=== PATIENT | male | born 1950 | race Caucasian/White ===

== ENCOUNTER 2021-05-22 12:30 | Inpatient (IN) | payer MEDICARE, SELFPAY ==
[2021-05-22] VITALS (7 sets, daily range): BP systolic 156–200; BP diastolic 82–120; PULSE 103–130; RESP 20–36; TEMP 36.8–39.5; O2SAT 95–97; BMI 26.9
--- NOTE | ~2021-05-22 | XR_ITS ---
EXAMINATION: XR CHEST CLINICAL INFORMATION: Cough COMPARISON: Previous chest CT from yesterday TECHNIQUE: Frontal view of the chest was obtained. FINDINGS: The cardiac and mediastinal contours are stable.. There is subsegmental atelectasis at both lung bases. The lungs are otherwise clear. There is no pleural effusion or pneumothorax. There are degenerative changes of the spine. XR/XR chest 1V IMPRESSION: Subsegmental atelectasis at the lung bases. No evidence of pneumonia.
--- NOTE | ~2021-05-22 | CT_ITS ---
EXAMINATION: CT CHEST WITHOUT CONTRAST CLINICAL INFORMATION: Fever. Mental status change. COMPARISON: None TECHNIQUE: Multidetector volumetric CT imaging of the chest was done. Axial MIP volume rendering provided. Sagittal and coronal reformatted images were obtained. This CT examination was performed using dose optimization techniques as appropriate, variously including the following: *Automated exposure control *Adjustment of mA and/or kV according to patient size (this includes techniques or standardized protocols for targeted exams where dose is matched to indication/reason for exam; i.e. extremities or head) *Use of iterative reconstruction technique DLP: 412 mGy-cm FINDINGS: LUNGS: There is mild dependent atelectasis at the lung bases. The lungs are otherwise clear. No evidence of pneumonia is seen. MEDIASTINUM: Heart is slightly enlarged. There is coronary artery calcification. The thoracic aorta is upper normal in size and tortuous. There is no pericardial effusion. There are no enlarged hilar or mediastinal lymph nodes. PLEURA: There is no pleural effusion. No pleural mass or thickening. AXILLA: No lymphadenopathy. UPPER ABDOMEN: See abdominal and pelvic CT report OSSEOUS STRUCTURES: There are degenerative changes of the spine and right shoulder. CT/CT chest wo con IMPRESSION: Enlarged heart, coronary artery calcification and tortuous upper normal-size thoracic aorta. No evidence of pneumonia. Fleischner guidelines were followed.
--- NOTE | ~2021-05-22 | MR_ITS ---
MRI OF THE BRAIN WITHOUT IV CONTRAST INDICATION: CVA. COMPARISON: Head CT 05/22/2021. TECHNIQUE: Multiplanar multisequence MR imaging of the brain was obtained without IV contrast. FINDINGS: Artifact versus a punctate subacute lacunar infarct within the left basal ganglia on image 19 of series 4. No large acute territorial infarcts. There is global cerebral volume loss, there is advanced chronic microangiopathy, and there are chronic lacunar infarcts within the martini radiata and deep huang nuclei bilaterally. There are a few foci of chronic facilitated diffusion within the left splenium of the corpus callosum. There is no hydrocephalus, extra-axial surface collection, or herniation. The major flow voids at the skull base are preserved. There is no intracranial hemorrhage on the gradient recalled echo acquisition. The midline structures are normal. The cerebellar tonsils are normally positioned. The cerebellum and brainstem are normal. The craniocervical junction is normal. Osseous marrow signal intensity is homogenous. The visualized soft tissues are unremarkable. MR/MR head/brain wo con IMPRESSION: Artifact versus a punctate subacute lacunar infarct within the left basal ganglia on image 19 of series 4. No large acute territorial infarcts. There is global cerebral volume loss, there is advanced chronic microangiopathy, and there are chronic lacunar infarcts within the martini radiata and deep huang nuclei bilaterally.
--- NOTE | ~2021-05-22 | CT_ITS ---
EXAMINATION: CT ABDOMEN AND PELVIS WITHOUT CONTRAST CLINICAL INFORMATION: Fever. Mental status change. Vomiting. COMPARISON: None TECHNIQUE: Multidetector volumetric imaging was performed from the superior aspect of the liver through the pubic symphysis. Sagittal and coronal reformatted images were obtained on the technologist's workstation. This CT examination was performed using dose optimization techniques as appropriate, variously including the following: *Automated exposure control *Adjustment of mA and/or kV according to patient size (this includes techniques or standardized protocols for targeted exams where dose is matched to indication/reason for exam; i.e. extremities or head) *Use of iterative reconstruction technique DLP: 706 mGy-cm FINDINGS: LIVER, GALLBLADDER, AND BILIARY TREE: The liver is normal in size, shape, and attenuation. There is a 1 cm low-attenuation lesion in the lateral segment of the left lobe of the liver. This is low Hounsfield units without contrast measuring 11 and probably represents a cyst. No other focal liver lesion is seen. No biliary ductal dilatation is present. The gallbladder is unremarkable with no evidence of radiopaque gallstones, gallbladder wall thickening, or obvious pericholecystic inflammatory changes. PANCREAS: Unremarkable. SPLEEN: Unremarkable. ADRENAL GLANDS: Unremarkable. KIDNEYS AND URETERS: There are 2 stones in the lower pole of the right kidney. The largest stone measures 2 x 4 mm. There is question of right lower pole peripelvic cyst versus focal right lower pole calyceal dilatation. BLADDER: The prostate gland is enlarged and protrudes into the base of the bladder. The bladder is otherwise unremarkable. GASTROINTESTINAL TRACT: There is diverticulosis of the colon. The small and large bowel are otherwise unremarkable. The appendix is unremarkable. ABDOMINAL WALL: There is a small umbilical hernia containing fat. LYMPH NODES: Normal. VASCULAR: There is evidence of atherosclerotic disease. PELVIC VISCERA: Prostate gland is enlarged and protrudes into the base of the bladder. The prostate gland measures 4.6 x 5.6 cm in AP and transverse dimension. OSSEOUS STRUCTURES: There are degenerative changes of the spine. There is posterior subluxation of L5 with respect L5 for and S1 probably due to facet arthritis. CT/CT abdomen pelvis wo con IMPRESSION: Right lower pole renal stones. Question right lower pole peripelvic cyst versus focal calyceal dilatation. Enlarged prostate gland that protrudes into the base of the bladder. Diverticulosis. Fleischner guidelines were followed.
--- NOTE | ~2021-05-22 | CT_ITS ---
EXAMINATION: CT HEAD WITHOUT CONTRAST (STROKE PROTOCOL) CLINICAL INFORMATION: Stroke protocol. Slurred speech. Left-sided weakness. COMPARISON: None TECHNIQUE: Contiguous axial imaging was performed from the skull base to vertex without intravenous administration of contrast. This CT examination was performed using dose optimization techniques as appropriate, variously including the following: *Automated exposure control *Adjustment of mA and/or kV according to patient size (this includes techniques or standardized protocols for targeted exams where dose is matched to indication/reason for exam; i.e. extremities or head) *Use of iterative reconstruction technique DLP: 831 mGy-cm FINDINGS: There is no evidence of an extra-axial collection. There is no evidence of intra-axial or extra-axial hemorrhage. The ventricles and extra-axial CSF spaces are prominent suggestive of mild generalized atrophy. There is nonspecific periventricular white matter disease. There is low-attenuation seen in the right periventricular white matter and thalamus suggestive of a small lacunar infarcts. No old exams are available for comparison and these are of uncertain age. No mass or mass effect is seen. There is evidence of atherosclerotic disease. Review at bone windows is normal. No skull fracture is seen. Paranasal sinuses, mastoid air cells and middle ears are clear. CT/CT head for stroke IMPRESSION: Generalized atrophy and nonspecific periventricular white matter disease. 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 This could be better evaluated with MRI if clinically indicated. No hemorrhage or mass effect. This critical result was discussed with Janessa Talbot at 1251 hours on 05/22/2020. It was ascertained that the content and urgency of the report was understood at the time of direct communication.
--- NOTE | ~2021-05-22 | US_ITS ---
EXAMINATION: US EXTRACRANIAL CAROTID DUPLEX, BILATERAL CLINICAL INFORMATION: CVA COMPARISON: None TECHNIQUE: Real-time ultrasound and Doppler techniques (integrating B-mode 2-D vascular images, Doppler spectral analysis and color-flow Doppler imaging) were utilized to interrogate the extracranial carotid arteries, the vertebral arteries and proximal subclavian arteries bilaterally. The degree of stenosis is determined by criteria similar to NASCET. FINDINGS: Right Side: 1. There is mild atherosclerotic plaque seen in the bifurcation/proximal ICA region. 2. The common carotid artery PSV proximally is 135 cm/s and distally 114 cm/s. 3. The proximal internal carotid artery velocities are 105 cm/s systolic and 21 cm/s diastolic. 4. The proximal external carotid artery PSV is 190 cm/s. 5. The vertebral artery shows a grade flow. 6. The subclavian artery waveforms are normal. Left Side: 1. There is mild atherosclerotic plaque seen in the bifurcation/proximal ICA region. 2. The common carotid artery PSV proximally is 104 cm/s and distally 150 cm/s. 3. The proximal internal carotid artery velocities are 72 cm/s systolic and 21 cm/s diastolic. 4. The proximal external carotid artery PSV is 143 cm/s. 5. The vertebral artery shows antegrade flow. 6. The subclavian artery waveforms are normal. US/US carotid duplex BI IMPRESSION: 1. RIGHT: Mild atherosclerotic plaque. 0-49% mild nonhemodynamically significant right ICA stenosis. 2. LEFT: Mild atherosclerotic plaque. 0-49% mild nonhemodynamically significant left ICA stenosis. .
--- NOTE | 2021-05-22 12:35 | ECG_ITS ---
Test Reason : WEAKNESS Blood Pressure : / mmHG Vent. Rate : 119 BPM Atrial Rate : 119 BPM P-R Int : 182 ms QRS Dur : 100 ms QT Int : 310 ms P-R-T Axes : 022 -13 018 degrees QTc Int : 436 ms Sinus tachycardia Incomplete right bundle branch block Minimal voltage criteria for LVH, may be normal variant ( Scio product ) Borderline ECG When compared with ECG of 25-JUN-2001 15:34, Vent. rate has increased BY 53 BPM Referred By: Alyssa Talbot Electronically Signed By:RENÉ BRIDGES
--- NOTE | 2021-05-22 12:41 | ED_ITS ---
HPI - General Adult General Chief complaint: Stroke Stated complaint: STROKE ALERT,SLURRED SPEECH,L SIDE,LKWT DAYS Time Seen by Provider: 05/22/21 12:33 Source: patient and EMS Mode of arrival: EMS Limitations: no limitations History of Present Illness HPI narrative: 70 yo male with history of HTN here with reports of gen weakness. EMS called in stroke alert as they were concerned the patient had left sided weakness, slurred speech with last known well time unknown. They were called to do a well check on the patient. He was found in his bed. He tells me he has malaise. No other complaints. Yesterday morning felt okay, went to bed but I didnt want to get out of bed today. No other complaints. Related Data Home Medications Medication Instructions Recorded Confirmed aspirin 81 mg tablet,delayed 81 mg PO DAILY 03/04/20 release lisinopril 20 1 tab PO DAILY 05/22/21 mg-hydrochlorothiazide 25 mg tablet metoprolol succinate 100 mg 1 tab PO DAILY 05/22/21 tablet,extended release 24 hr Previous Rx's Medication Instructions Recorded amlodipine 5 mg tablet 5 mg PO DAILY 90 Days #90 tab 04/05/20 Allergies Allergy/AdvReac Type Severity Reaction Status Date / Time Unable to Assess Allergy Verified 05/22/21 12:52 Review of Systems Review of Systems: Yes all other systems are reviewed and are negative Constitutional: Constitutional: Reports no additional constitutional complaints, Denies body ache(s), Denies chills, Denies fever(s), Denies headache(s), Reports malaise and Denies weakness Eyes: Eyes: Reports no additional eye complaints and Denies change in vision ENT: Reports system reviewed and no additional complaints, except as documented, Denies dizziness, Denies headache(s), Denies nasal congestion, Denies nasal discharge and Denies neck pain Cardiovascular: Cardiovascular: Reports no additional cardiovascular complaints, Denies chest pain, Denies leg edema and Denies dyspnea Respiratory: Respiratory: Reports no additional respiratory complaints, Reports cough and Denies dyspnea Gastrointestinal: Gastrointestinal: Reports no additional gastrointestinal co mplaints, Denies abdominal pain, Denies diarrhea, Denies nausea and Denies vomiting Genitourinary: Genitourinary: Denies urinary incontinence Musculoskeletal: Musculoskeletal: Reports no additional musculoskeletal complaints, Denies back pain, Denies arthralgias, Denies joint swelling, Denies neck pain, Denies numbness and Denies tingling Integumentary/Breasts: Skin/Breast: Reports system reviewed and no additional complaints, except as docu and Denies rash Neurologic: Reports system reviewed and no additional complaints, except as documented, Denies Abnormal speech present, Denies dizziness, Denies h eadache(s), Denies numbness, Denies tingling and Denies weakness [facility] Past Medical History Attestation statement: The following information was validated with the patient. Source: old records reviewed and nursing notes reviewed Medical History Hypertension Pre-op examination Social History Social History Alcohol intake: current Alcohol intake frequency: holidays/special occasions only Alcohol type: wine Patient Tobacco Use Status: Never used Tobacco Use of substances other than those prescribed or required for medical reasons: No Advance Directives: No Advance Directives Information Provided: Yes Physical Exam ED Vital Signs: Vital Signs - 24 hr 05/22/21 12:52 05/22/21 13:02 05/22/21 14:24 Temperature 103.1 F H 103.1 F H 99.6 F Pulse Rate 119 H 115 H 115 H Respiratory Rate 36 H 26 H 24 H Blood Pressure 173/106 H 173/106 H 156/90 H Pulse Oximetry 95 95 96 BMI result Body Mass Index 26.9 Const General: alert Orientation/consciousness: oriented to person and oriented to place Limitations: no limitations HENMT Other: Tacky MM Head: Yes normal to inspection Ears: hearing grossly normal bilaterally and TM's normal bilaterally General nose exam: Normal external nose present Face and sinus: Yes normal facial exam Throat: Yes posterior oropharynx normal, Yes tonsils normal and Yes uvula midline Eyes General: appearance normal, both eyes and all related structures Pupils: Equal, round and reactive pupils present Neck Neck: Yes normal visual inspection, Yes full ROM, Yes no lymphadenopathy and Yes no meningeal signs Chest Chest palpation & inspection: normal inspection of the chest Resp Other: +dry cough mild tachypnea Auscultation: clear to auscultation bilaterally Cardio Rate: tachycardic Rhythm: regular rhythm Peripheral pulses: Peripheral pulses 2+ throughout GI Inspection: Yes normal to inspection Palpation (GI): Soft to palpation and nontender General: Yes no CVA tenderness Back/Spine/Pelvis Back: no CVA tenderness Thoracic/Lumbar Spine: thoracic and lumbar spine normal to inspection Skin Other: Warm to touch. flushed Neuro Other: UE 5/5 LE (RLE 5/5, LLE 4/5) Slow to respond General: oriented to person, oriented to place, moves all extremities, no meningeal signs and Unable to assess gait Cranial nerves: Yes CN's II-XII intact bilaterally, Yes Equal, round and reactive pupils present, Yes Bilaterally intact EOM present, Yes Nystagmus not present, Yes Normal facial strength present and Yes Midline tongue present Cognition (Neuro): normal cognition Speech: No Abnormal speech present Gait exam (Neuro): Unable to assess gait Sensory Exam: Normal double simultaneous stimulation for sensation Extrem General: Yes normal to inspection, Yes no pedal edema and Yes no calf tenderness NIH Stroke Scale Internal: Initial- Upon Arrival Level of Consciousness: Alert Level of Consciousness Questions: Answers both questions correctly Level of Consciousness Commands: Performs both tasks correctly Best Gaze: Normal Visual: No visual loss Facial Palsy: Normal Motor Arm (Right): No drift Motor Arm (Left): No drift Motor Leg (Right): No drift Motor Leg (Left): Drift Limb Ataxia: Absent Sensory: Normal Best Language: No aphasia Dysarthia: Normal Extinction and Inattention: No abnormality Score: 1 Course Course Course Narrative: Called in for stroke alert with EMS having concerns that patient has slurred speech, left sided weakness with unknown last known normal. On arrival I do not appreciated LUE weakness, or slurred speech. Patint warm to touch, feels febrile, tachycardic and flushed. Went direct to CT head as stroke alert. Will examine patient further post CT scan. 1250-call from dr Pickens w/ CT head results. IMPRESSION: Generalized atrophy and nonspecific periventricular white matter disease. 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 This could be better evaluated with MRI if clinically indicated. No hemorrhage or mass effect. -Not TPA candidate d/t unknown last known normal. 1300-Evaluated the patient post CT scan. Patient febrile 103, tachycardia and tachypnea likely secondary to fever, hypertensive (has not take his bp in several days). Fabiola MM. I do not appreciated any slurred speech or UE weakness. He does have some mild weakness of the LLE but unsure onset of this. Will need labs, EKG, UA, COVID/flu screening. At this time infection is awan spected. Antibiotics ordered. 1400-Per nursing patient failed swallow screen and was unable to tolerate oral APAP. Will give [place]. MG 1.4, will replace IV. CT chest/A/P all unremarkable. Patient is FLU A +. Meeting SIRS criteria. This is from viral infection. UA pending. He is alert, slow to respond and per cousin at bedside patient is not at his mental status baseline. Will admit to medicine for further w/u. 1500-D/w with Dr Lombardi who accepted admission. Medical Decision Making Medical Records Medical records reviewed: Yes I reviewed the patient's medical records. Lab Data Lab results reviewed: Yes I reviewed the patient's lab results. Result diagrams: 05/22/21 13:16 05/22/21 13:16 Labs: Lab Results 05/22/21 05/22/21 05/22/21 Range/Units 13:00 13:01 13:16 WBC 10.5 (4.8-10.8) X10*3/uL RBC 5.25 (4.60-5.80) X10*6/uL Hgb 14.7 (14.0-18.0) g/dl Hct 42.1 (42.0-52.0) % MCV 80.2 (80.0-98.0) fL MCH 28.0 (27.0-33.0) pg MCHC 34.9 (31.0-36.0) g/dl RDW 12.4 (11.0-16.0) % Plt Count 193 (160-400) X10*3/uL MPV 11.2 (9.4-12.4) fL Immature Gran % (Auto) 0.3 (0.0-0.4) % Neut % (Auto) 82.1 H (45-73) % Lymph % (Auto) 6.0 L (20-40) % Loup % (Auto) 11.3 H (2-11) % Eos % (Auto) 0.0 (0-4) % Baso % (Auto) 0.3 (0-2) % Lymph # (Auto) 0.6 L (1.2-4.9) X10*3/uL Loup # (Auto) 1.2 (0.1-1.2) X10*3/uL Eos # (Auto) 0.0 (0.0-0.4) X10*3/uL Baso # (Auto) 0.0 (0.0-0.2) X10*3/uL Abs Immat Gran (auto) 0.03 (0.00-0.03) X10*3/uL Absolute Neuts (auto) 8.7 H (2.0-8.3) x10*3/uL Absolute Nucleated RBC 0.000 (0.0-0.012) X10*3/uL Nucleated RBC % (auto) 0.0 (0.0-0.2) /100WBC PT (9.9-13.0) SEC Whole Blood PT 14.1 H (11.1-13.5) sec INR (0.9-1.1) Whole Blood INR 1.2 H (0.9-1.1) Sodium (135-145) mmol/L Potassium (3.3-5.1) mmol/L Chloride (96-108) mmol/L Carbon Dioxide (22-29) mmol/L Anion Gap (12-20) BUN (9-16) mg/dL Creatinine (0.5-1.4) mg/dL Estim Creat Clear Calc Estimated GFR POC Glucose 137 H (60-115) mg/dL Random Glucose (60-115) mg/dL Lactic Acid (0.5-2.0) mmol/L Calcium (8.4-10.2) mg/dL Magnesium (1.6-2.6) mg/dL Total Bilirubin (0.0-1.0) mg/dL Direct Bilirubin (0.0-0.5) mg/dL AST (5-37) U/L ALT (0-40) U/L Alkaline Phosphatase (39-117) U/L Total Creatine Kinase (38-174) U/L Troponin I High Sens (<3.5-35.0) ng/L Total Protein (6.5-8.0) g/dL Albumin (3.5-5.0) g/dL COVID-19 (CHUCK) (Negative) COVID-19 Clin Com Influenza Type A (MANUEL) (Negative) Influenza Type B (MANUEL) (Negative) Influenza A & B Note 05/22/21 05/22/21 05/22/21 Range/Units 13:16 13:16 13:16 WBC (4.8-10.8) X10*3/uL RBC (4.60-5.80) X10*6/uL Hgb (14.0-18.0) g/dl Hct (42.0-52.0) % MCV (80.0-98.0) fL MCH (27.0-33.0) pg MCHC (31.0-36.0) g/dl RDW (11.0-16.0) % Plt Count (160-400) X10*3/uL MPV (9.4-12.4) fL Immature Gran % (Auto) (0.0-0.4) % Neut % (Auto) (45-73) % Lymph % (Auto) (20-40) % Loup % (Auto) (2-11) % Eos % (Auto) (0-4) % Baso % (Auto) (0-2) % Lymph # (Auto) (1.2-4.9) X10*3/uL Loup # (Auto) (0.1-1.2) X10*3/uL Eos # (Auto) (0.0-0.4) X10*3/uL Baso # (Auto) (0.0-0.2) X10*3/uL Abs Immat Gran (auto) (0.00-0.03) X10*3/uL Absolute Neuts (auto) (2.0-8.3) x10*3/uL Absolute Nucleated RBC (0.0-0.012) X10*3/uL Nucleated RBC % (auto) (0.0-0.2) /100WBC PT 15.4 H (9.9-13.0) SEC Whole Blood PT (11.1-13.5) sec INR 1.3 H (0.9-1.1) Whole Blood INR (0.9-1.1) Sodium 140 (135-145) mmol/L Potassium 3.4 (3.3-5.1) mmol/L Chloride 104 (96-108) mmol/L Carbon Dioxide 21 L (22-29) mmol/L Anion Gap 18 (12-20) BUN 15 (9-16) mg/dL Creatinine 1.08 (0.5-1.4) mg/dL Estim Creat Clear Calc 71.8 Estimated GFR > 60 POC Glucose (60-115) mg/dL Random Glucose 139 H (60-115) mg/dL Lactic Acid 2.0 (0.5-2.0) mmol/L Calcium 9.4 (8.4-10.2) mg/dL Magnesium 1.5 L (1.6-2.6) mg/dL Total Bilirubin 0.7 (0.0-1.0) mg/dL Direct Bilirubin 0.2 (0.0-0.5) mg/dL AST 17 (5-37) U/L ALT 19 (0-40) U/L Alkaline Phosphatase 51 (39-117) U/L Total Creatine Kinase 373 H (38-174) U/L Troponin I High Sens (<3.5-35.0) ng/L Total Protein 7.5 (6.5-8.0) g/dL Albumin 4.4 (3.5-5.0) g/dL COVID-19 (CHUCK) (Negative) COVID-19 Clin Com Influenza Type A (MANUEL) (Negative) Influenza Type B (MANUEL) (Negative) Influenza A & B Note 05/22/21 05/22/21 05/22/21 Range/Units 13:16 13:16 13:16 WBC (4.8-10.8) X10*3/uL RBC (4.60-5.80) X10*6/uL Hgb (14.0-18.0) g/dl Hct (42.0-52.0) % MCV (80.0-98.0) fL MCH (27.0-33.0) pg MCHC (31.0-36.0) g/dl RDW (11.0-16.0) % Plt Count (160-400) X10*3/uL MPV (9.4-12.4) fL Immature Gran % (Auto) (0.0-0.4) % Neut % (Auto) (45-73) % Lymph % (Auto) (20-40) % Loup % (Auto) (2-11) % Eos % (Auto) (0-4) % Baso % (Auto) (0-2) % Lymph # (Auto) (1.2-4.9) X10*3/uL Loup # (Auto) (0.1-1.2) X10*3/uL Eos # (Auto) (0.0-0.4) X10*3/uL Baso # (Auto) (0.0-0.2) X10*3/uL Abs Immat Gran (auto) (0.00-0.03) X10*3/uL Absolute Neuts (auto) (2.0-8.3) x10*3/uL Absolute Nucleated RBC (0.0-0.012) X10*3/uL Nucleated RBC % (auto) (0.0-0.2) /100WBC PT (9.9-13.0) SEC Whole Blood PT (11.1-13.5) sec INR (0.9-1.1) Whole Blood INR (0.9-1.1) Sodium (135-145) mmol/L Potassium (3.3-5.1) mmol/L Chloride (96-108) mmol/L Carbon Dioxide (22-29) mmol/L Anion Gap (12-20) BUN (9-16) mg/dL Creatinine (0.5-1.4) mg/dL Estim Creat Clear Calc Estimated GFR POC Glucose (60-115) mg/dL Random Glucose (60-115) mg/dL Lactic Acid (0.5-2.0) mmol/L Calcium (8.4-10.2) mg/dL Magnesium (1.6-2.6) mg/dL Total Bilirubin (0.0-1.0) mg/dL Direct Bilirubin (0.0-0.5) mg/dL AST (5-37) U/L ALT (0-40) U/L Alkaline Phosphatase (39-117) U/L Total Creatine Kinase (38-174) U/L Troponin I High Sens 20.9 (<3.5-35.0) ng/L Total Protein (6.5-8.0) g/dL Albumin (3.5-5.0) g/dL COVID-19 (CHUCK) Negative (Negative) COVID-19 Clin Com See Note Influenza Type A (MANUEL) Positive A (Negative) Influenza Type B (MANUEL) Negative (Negative) Influenza A & B Note See Note Imaging Data CT scan - head: Attestation: I personally reviewed and interpreted this imaging study as follows: Radiologist's impression: FINDINGS: There is no evidence of an extra-axial collection. There is no evidence of intra-axial or extra-axial hemorrhage. The ventricles and extra-axial CSF spaces are prominent suggestive of mild generalized atrophy. There is nonspecific periventricular white matter disease. There is low-attenuation seen in the right periventricular white matter and thalamus suggestive of a small lacunar infarcts. No old exams are available for comparison and these are of uncertain age. No mass or mass effect is seen. There is evidence of atherosclerotic disease. Review at bone windows is normal. No skull fracture is seen. Paranasal sinuses, mastoid air cells and middle ears are clear. CT/CT head for stroke IMPRESSION: Generalized atrophy and nonspecific periventricular white matter disease. 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 This could be better evaluated with MRI if clinically indicated. No hemorrhage or mass effect. CT scan - chest: Attestation: I personally reviewed and interpreted this imaging study as follows: Radiologist's impression: [place] [id number] CT Scan Report Signed Patient: Jason Da Silva JR MR#: [id number] : 1950 Acct:[id number] Age/Sex: 70 / M ADM Date: 05/22/21 Loc: .ED Attending Dr: Ordering Physician: Alyssa Talbot NP Date of Service: 05/22/21 Procedure(s): CT chest wo [facility] Accession Number(s): [id number] cc: Alyssa Talbot NP~ EXAMINATION: CT CHEST WITHOUT CONTRAST CLINICAL INFORMATION: Fever. Mental status change.? COMPARISON: None? TECHNIQUE: Multidetector volumetric CT imaging of the chest was done. Axial MIP volume rendering provided. Sagittal and coronal reformatted images were obtained.? This CT examination was performed using dose optimization techniques as appropriate, variously including the following: *Automated exposure control *Adjustment of mA and/or kV according to patient size (this includes techniques or standardized protocols for targeted exams where dose is matched to indication/reason for exam; i.e. extremities or head) *Use of iterative reconstruction technique DLP: 412 mGy-cm FINDINGS: LUNGS: There is mild dependent atelectasis at the lung bases. The lungs are otherwise clear. No evidence of pneumonia is seen. MEDIASTINUM: Heart is slightly enlarged. There is coronary artery calcification. The thoracic aorta is upper normal in size and tortuous. There is no pericardial effusion. There are no enlarged hilar or mediastinal lymph nodes. PLEURA: There is no pleural effusion. No pleural mass or thickening.? AXILLA: No lymphadenopathy.? UPPER ABDOMEN: See abdominal and pelvic CT report OSSEOUS STRUCTURES: There are degenerative changes of the spine and right shoulder.? CT/CT chest wo con IMPRESSION: Enlarged heart, coronary artery calcification and tortuous upper normal-size thoracic aorta. No evidence of pneumonia. CT scan - abdomen: Attestation: I personally reviewed and interpreted this imaging study as follows: Radiologist's impression: FINDINGS: LIVER, GALLBLADDER, AND BILIARY TREE: The liver is normal in size, shape, and attenuation. There is a 1 cm low-attenuation lesion in the lateral segment of the left lobe of the liver. This is low Hounsfield units without contrast measuring 11 and probably represents a cyst. No other focal liver lesion is seen. No? biliary ductal dilatation is present. The gallbladder is unremarkable with no evidence of radiopaque gallstones, gallbladder wall thickening, or obvious pericholecystic inflammatory changes.? PANCREAS: Unremarkable.? SPLEEN: Unremarkable.? ADRENAL GLANDS: Unremarkable.? KIDNEYS AND URETERS: There are 2 stones in the lower pole of the right kidney. The largest stone measures 2 x 4 mm. There is question of right lower pole peripelvic cyst versus focal right lower pole calyceal dilatation.? BLADDER: The prostate gland is enlarged and protrudes into the base of the bladder. The bladder is otherwise unremarkable. GASTROINTESTINAL TRACT: There is diverticulosis of the colon. The small and large bowel are otherwise unremarkable. The appendix is unremarkable.? ABDOMINAL WALL: There is a small umbilical hernia containing fat. LYMPH NODES: Normal. VASCULAR: There is evidence of atherosclerotic disease. PELVIC VISCERA: Prostate gland is enlarged and protrudes into the base of the bladder. The prostate gland measures 4.6 x 5.6 cm in AP and transverse dimension. OSSEOUS STRUCTURES: There are degenerative changes of the spine. There is posterior subluxation of L5 with respect L5 for and S1 probably due to facet arthritis.? CT/CT abdomen pelvis wo con IMPRESSION: Right lower pole renal stones. Question right lower pole peripelvic cyst versus focal calyceal dilatation. Enlarged prostate gland that protrudes into the base of the bladder. Diverticulosis. ? Fleischner guidelines were followed. Discharge Plan Discharge Clinical Impression: Influenza, Encephalopathy, Abnormal CT scan of head Patient Disposition: Admitted As Inpatient
[2021-05-22 13:05] LABS: Prothrombin Time Whole Bld POC 14.1 sec (11.1-13.5); ~PT, ~INR - Anti Coag Clinic 1.2 (0.9-1.1)
[2021-05-22 13:07] LABS: Glucose, Whole Blood 137 mg/dL (60-115)
[2021-05-22] MEDS: 0.9 % Sodium Chloride 1,000 ML 999 ML IV (13:22)
[2021-05-22 13:23] LABS: MANUAL DIFF FLAG NO
[2021-05-22 13:26] LABS: Basophils Percent Auto 0.3 % (0-2); Hematocrit 42.1 % (42.0-52.0); Hemoglobin 14.7 g/dl (14.0-18.0); Imm Gran Abs Auto 0.03 X10*3/uL (0.00-0.03); Imm Gran Pct Auto 0.3 % (0.0-0.4); Lymphocytes Absolute Auto 0.6 X10*3/uL (1.2-4.9); Mean Corpuscular HGB Conc 34.9 g/dl (31.0-36.0); Mean Corpuscular Volume 80.2 fL (80.0-98.0); Mean Platelet Volume 11.2 fL (9.4-12.4); Monocytes Absolute Auto 1.2 X10*3/uL (0.1-1.2); Monocytes Percent Auto 11.3 % (2-11); Neutrophils Absolute Auto 8.7 x10*3/uL (2.0-8.3); Neutrophils Percent Auto 82.1 % (45-73); Platelet Count 193 X10*3/uL (160-400); Red Blood Count 5.25 X10*6/uL (4.60-5.80); Red Cell Distribution Width 12.4 % (11.0-16.0); White Blood Count 10.5 X10*3/uL (4.8-10.8)
[2021-05-22] MEDS: cefTRIAXone sodium 1 GM in 0.9 % Sodium Chloride 50 ML IV (13:28)
[2021-05-22 13:32] LABS: INTERNATIONAL NORM RATIO 1.3 (0.9-1.1); Prothrombin Time 15.4 SEC (9.9-13.0)
[2021-05-22] MEDS: Acetaminophen Supp 650 MG SUPP.RECT PR (13:36)
--- NOTE | 2021-05-22 13:38 | PC.NURSE ---
pt a&ox3, hypertensive, increased RR (25-35) - pt reports that his breathing is normal for him, sinus tach on monitor. pt unsure as to what happened prior to pt being found by EMS, pt straight to CT. cock ring premoved by provider. ekg obtained, labs drawn, 20G IV started R AC, 18G IV started by EMS L AC and L forearm. flds started. failed swallow screen. unable to obtain urine sample at this time, family at bedside.
[2021-05-22 13:40] LABS: COVID-19 Test Negative (Negative); IDNOW Serial# 16C4AD1C
--- NOTE | 2021-05-22 13:40 | PC.NURSE ---
medicated per provider order - Tylenol changed to suppository due to failed swallow eval.
[2021-05-22 13:43] LABS: Alanine Aminotransferase 19 U/L (0-40); Albumin Level 4.4 g/dL (3.5-5.0); Alkaline Phosphatase 51 U/L (39-117); Anion Gap 18 (12-20); Aspartate Amino Transferase 17 U/L (5-37); Bilirubin Direct 0.2 mg/dL (0.0-0.5); Bilirubin Total 0.7 mg/dL (0.0-1.0); Blood Urea Nitrogen 15 mg/dL (9-16); Calcium 9.4 mg/dL (8.4-10.2); Carbon Dioxide 21 mmol/L (22-29); Chloride 104 mmol/L (96-108); Creatinine Clr Calc Pharmacy 71.8; Estimated Glomerular Filt Rate > 60; Glucose Random 139 mg/dL (60-115); Magnesium 1.5 mg/dL (1.6-2.6); Potassium 3.4 mmol/L (3.3-5.1); Sodium 140 mmol/L (135-145); Total Protein 7.5 g/dL (6.5-8.0)
[2021-05-22 13:47] LABS: Troponin-I High Sensitivity 20.9 ng/L (<3.5-35.0)
[2021-05-22 13:51] LABS: Influenza A Positive (Negative); Influenza B2 Negative (Negative)
[2021-05-22] MEDS: Magnesium Sulfate/H2O 2 GM/50 ML PIGGYBACK IV (14:19)
--- NOTE | 2021-05-22 14:26 | PC.NURSE ---
pt a&ox3, denies pain at this time, breathing appears less laboured, RR 25. medicated per provider order. no new orders at this time.
--- NOTE | 2021-05-22 15:07 | PHA.MEDREC ---
Pharmacy Consult ? Medication Reconciliation Pharmacy has completed the medication reconciliation.
--- NOTE | 2021-05-22 15:39 | P.HPHOSP_ITS ---
History of Present Illness Date of Service: 05/22/21 Attending physician on admission: Micheal Lombardi Chief Complaint: sirs , flu , cva 70-year-old male with past medical history uncontrolled hypertension- for today ED because of question of left-sided arm weakness and slurred speech. 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 As per the patient patient has left shoulder pain which is chronic and getting treatment in [facility] off with pain management? Is also not clear if he had slurred speech, currently speaking normally. Denies any new complaint of chest pain or shortness of breath or abdominal pain or fever or chills or nausea or vomiting Denies any weakness or numbness. ED workup: WBC 10.5 Hemoglobin is 14.7, hematocrit: 42.1 Platelets 193 bmp: Sodium 140, potassium 3.4, bicarb 21, BUN 15, creatinine 1.08. Fingersticks running 130s LFTs normal. CPK 373 CT/CT abdomen pelvis wo con IMPRESSION: Right lower pole renal stones. Question right lower pole peripelvic cyst versus focal calyceal dilatation. Enlarged prostate gland that protrudes into the base of the bladder. Diverticulosis. ? Fleischner guidelines were followed. ?CT/CT chest wo con IMPRESSION: Enlarged heart, coronary artery calcification and tortuous upper normal-size thoracic aorta. No evidence of pneumonia. ? Fleischner guidelines were followed. CT/CT head for stroke IMPRESSION: Generalized atrophy and nonspecific periventricular white matter disease. 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 This could be better evaluated with MRI if clinically indicated. No hemorrhage or mass effect. Review of Systems Review of Systems: As above. Yes all other systems are reviewed and are negative [facility] Medical History Hypertension Pre-op examination Pertinent family history: Mother had history of CVA, denies anybody sick at home. Social History Alcohol intake: current Alcohol intake frequency: holidays/special occasions only Alcohol type: wine Patient Tobacco Use Status: Never used Tobacco Use of substances other than those prescribed or required for medical reasons: No Advance Directives: No Advance Directives Information Provided: Yes Meds Allergies Allergy/AdvReac Type Severity Reaction Status Date / Time Unable to Assess Allergy Verified 05/22/21 12:52 Active Medications: Current Medications Aspirin (Aspirin Enteric Coated 81 Mg Tablet.Dr) 81 mg PO DAILY AMIRA Lisinopril 20 mg/ (Hydrochlorothiazide 25 mg) 0 mg PO DAILY AMIRA Magnesium Sulfate (Magnesium Sulfate/H2o) 2 gm in 50 mls @ 25 mls/hr IV ONCE ONE Stop: 05/22/21 15:53 Last Admin: 05/22/21 14:19 Dose: 25 mls/hr Documented by: Metoprolol Succinate (Metoprolol Succinate Er 100 Mg Tab.Er.24h) 100 mg PO DAILY AMIRA; Protocol Pharmacy Consult (Consult Rx Perform Med Rec) 1 each MISCELLANE ONCE PRN PRN Reason: Consult order Home Medications Medication Instructions Recorded Confirmed Last Taken Type aspirin 81 mg tablet,delayed 81 mg PO DAILY 03/04/20 05/22/21 05/21/21 History release lisinopril 20 1 tab PO DAILY 05/22/21 05/22/21 05/21/21 History mg-hydrochlorothiazide 25 mg tablet metoprolol succinate 100 mg 1 tab PO DAILY 05/22/21 05/22/21 05/21/21 History tablet,extended release 24 hr Physical Exam Vital Signs and Narrative: Vital Signs: Last Vital Signs Temp 99.6 F 05/22/21 14:24 Pulse 115 H 05/22/21 14:24 Resp 24 H 05/22/21 14:24 BP 156/90 H 05/22/21 14:24 Pulse Ox 96 05/22/21 14:24 BMI result Body Mass Index 26.9 Appearance: Alert.? Oriented X3.? not in distress.? Eyes: Pupils equal, round and reactive to light.? Sclera nonicteric.? ENT: Pharynx normal.? Moist mucous membranes. cvs: rrr, [id number] , no murmur res: clear to auscultation ,no rhonchii or wheezing abd: no rebound or guarding ,nt, bs present. ext pulses present , no cyanosis . neuro: axo3, moves all extermities ,left arm and shoulder area rom limited -has pain feels weak generally ,could stand up not walking feels generally weak. Results Labs CBC and Chem 7: 05/22/21 13:16 05/22/21 13:16 Labs: Laboratory Results - last 24 hr 05/22/21 05/22/21 05/22/21 13:00 13:01 13:16 MCV 80.2 MCH 28.0 MCHC 34.9 RDW 12.4 Plt Count 193 MPV 11.2 Immature Gran % (Auto) 0.3 Neut % (Auto) 82.1 H Lymph % (Auto) 6.0 L [place] % (Auto) 11.3 H Eos % (Auto) 0.0 Baso % (Auto) 0.3 Lymph # (Auto) 0.6 L [place] # (Auto) 1.2 Eos # (Auto) 0.0 Baso # (Auto) 0.0 Abs Immat Gran (auto) 0.03 Absolute Neuts (auto) 8.7 H Absolute Nucleated RBC 0.000 Nucleated RBC % (auto) 0.0 PT Whole Blood PT 14.1 H INR Whole Blood INR 1.2 H Anion Gap Estim Creat Clear Calc Estimated GFR POC Glucose 137 H Random Glucose Lactic Acid Calcium Magnesium Total Bilirubin Direct Bilirubin AST ALT Alkaline Phosphatase Total Creatine Kinase Total Protein Albumin COVID-19 (CHUCK) COVID-19 Clin Com Influenza Type A (MANUEL) Influenza Type B (MANUEL) Influenza A & B Note 05/22/21 05/22/21 05/22/21 13:16 13:16 13:16 MCV MCH MCHC RDW Plt Count MPV Immature Gran % (Auto) Neut % (Auto) Lymph % (Auto) [place] % (Auto) Eos % (Auto) Baso % (Auto) Lymph # (Auto) [place] # (Auto) Eos # (Auto) Baso # (Auto) Abs Immat Gran (auto) Absolute Neuts (auto) Absolute Nucleated RBC Nucleated RBC % (auto) PT 15.4 H Whole Blood PT INR 1.3 H Whole Blood INR Anion Gap 18 Estim Creat Clear Calc 71.8 Estimated GFR > 60 POC Glucose Random Glucose 139 H Lactic Acid 2.0 Calcium 9.4 Magnesium 1.5 L Total Bilirubin 0.7 Direct Bilirubin 0.2 AST 17 ALT 19 Alkaline Phosphatase 51 Total Creatine Kinase 373 H Total Protein 7.5 Albumin 4.4 COVID-19 (CHUCK) COVID-19 Clin Com Influenza Type A (MANUEL) Influenza Type B (MANUEL) Influenza A & B Note 05/22/21 05/22/21 13:16 13:16 MCV MCH MCHC RDW Plt Count MPV Immature Gran % (Auto) Neut % (Auto) Lymph % (Auto) [place] % (Auto) Eos % (Auto) Baso % (Auto) Lymph # (Auto) [place] # (Auto) Eos # (Auto) Baso # (Auto) Abs Immat Gran (auto) Absolute Neuts (auto) Absolute Nucleated RBC Nucleated RBC % (auto) PT Whole Blood PT INR Whole Blood INR Anion Gap Estim Creat Clear Calc Estimated GFR POC Glucose Random Glucose Lactic Acid Calcium Magnesium Total Bilirubin Direct Bilirubin AST ALT Alkaline Phosphatase Total Creatine Kinase Total Protein Albumin COVID-19 (CHUCK) Negative COVID-19 Clin Com See Note Influenza Type A (MANUEL) Positive A Influenza Type B (MANUEL) Negative Influenza A & B Note See Note ECG Attestation: I personally reviewed and interpreted this ECG as follows: (sinus tachycardia) Imaging Radiologist's Impressions: Impressions Head CT 05/22/21 12:42 IMPRESSION: Generalized atrophy and nonspecific periventricular white matter disease. 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 This could be better evaluated with MRI if clinically indicated. No hemorrhage or mass effect. This critical result was discussed with Janessa Talbot at 1251 hours on 05/22/2020. It was ascertained that the content and urgency of the report was understood at the time of direct communication. Abdomen/Pelvis CT 05/22/21 13:04 IMPRESSION: Right lower pole renal stones. Question right lower pole peripelvic cyst versus focal calyceal dilatation. Enlarged prostate gland that protrudes into the base of the bladder. Diverticulosis. Fleischner guidelines were followed. Chest CT 05/22/21 13:04 IMPRESSION: Enlarged heart, coronary artery calcification and tortuous upper normal-size thoracic aorta. No evidence of pneumonia. Fleischner guidelines were followed. Assessment and Plan (1) Influenza: Status: Acute (2) Abnormal CT scan of head: Status: Acute (3) Hypertension: Status: Acute Plan 1. Possible cva? ct findings seems undetemined age continue asa , lipid panel cva workup , neurology eval 2.htn uncontrolled : cotninue home meds 3. Viral sepsis due to influenza A: Continue Tamiflu Ua and drug sceern also added . Blood culture pending 4. Hypomagnesemia: Repleted, monitor electrolytes. 5. Pre renal azotemia: Continue gentle hydration. 6. Mild hyperglycemia: Added hemoglobin A1c. 7. Prostate enlargement: added flomax. DVT prophylaxis: Subcu heparin. Above management discussed the patient detail length they understand agreement with the above plan, time spent 70 minute, patient is DNR DNI as per patient wishes. Considering having possible CVA need workup, uncontrolled hypertension and viral sepsis-patient may benefit from to midnight hospital stay. Quality Stroke Does the patient have a stroke diagnosis?: No VTE Prior VTE?: No VTE Risk Level:: Medical - moderate - high VTE Device Contraindication: N/A - Device Ordered VTE Drug Contraindication: N/A - Med Ordered
--- NOTE | 2021-05-22 16:01 | PC.NURSE ---
u/s in room, urine sample obtained and sent to lab
[2021-05-22 16:06] LABS: Appearance Urine CLEAR; Color Urine YELLOW; Glucose Urine UA NEG (NEG); Leukocyte Esterase Urine NEG (NEG); Nitrite Urine NEG (NEG); PH 5.5 (5.0-8.0); Specific Gravity - Urine >= 1.030 (1.005-1.025); UACC Culture Trigger NO; Urine Blood 2+ (NEG); Urine Ketones 15 MG/DL (NEG); Urine Protein 2+ MG/DL (NEG-TRACE)
[2021-05-22 16:17] LABS: RBC Urine 0-2 /HPF (0); WBC Urine 0 /HPF (0-4)
[2021-05-22 16:18] LABS: Amphetamine Screen Urine Not Detected (Not Detect); Barbiturates, Urine Not Detected (Not Detect); Benzodiazepines Screen Urine Not Detected (Not Detect); Cannabinoid Screen Urine Not Detected (Not Detect); Cocaine Screen Urine Not Detected (Not Detect); Fentanyl, urine Not Detected (Not Detect); Mucus Urine TRACE /LPF; Opiate Screen Urine Not Detected (Not Detect); Phencyclidine Screen Urine Not Detected (Not Detect); Squamous Epithelial Cell Urine TRACE /LPF
[2021-05-22 16:21] LABS: Glucose, Whole Blood 150 mg/dL (60-115)
[2021-05-22] MEDS: Lactated Ringers 1,000 ML 80 ML IVCONT (16:24)
[2021-05-22] MEDS: Heparin Sodium,Porcine 5,000 UNIT/ML VIAL 5000 UNIT SUBCUT (16:24)
--- NOTE | 2021-05-22 17:03 | PC.NURSE ---
pt a&ox3, vss - pt remains hypertensive/sinus tach, LR running at 80mL/hr, pt has equal strength bilateral upper and lower extremities. pt had slight difficulty holding left leg up, but managed to keep it at the same height. swallow eval repeated - pt passed, provider notified, will put in diet for pt. no new orders at this time.
--- NOTE | 2021-05-22 17:30 | PC.NURSE ---
pt requesting throat lozenge for sore throat (pt coughing), provider notified.
[2021-05-22] MEDS: Throat Lozenge, Medicated LOZENGE 1 LOZENGE MUCOUS MEM ×2 (18:40→21:01)
--- NOTE | 2021-05-22 18:56 | PC.NURSE ---
pt a&ox3, vss - hypertensive,
--- NOTE | 2021-05-22 19:00 | PC.NURSE ---
pt a&ox3, vss - pt remains hypertensive with HR in the high 90s to low 100s, RR 18-25. pt has equal strength bilateral upper and lower extremities. pt had slight difficulty holding left leg up, but managed to keep it at the same height. pt c/o of sore throat, prn throat lozenge ordered by provider, medicated per order. LR @ 80mL/hr.
[2021-05-22 19:37] LABS: Strep A Nucleic Acid Negative (Negative)
[2021-05-22] MEDS: Oseltamivir Phosphate 75 MG CAPSULE PO (20:05)
[2021-05-22] MEDS: Tamsulosin HCL 0.4 MG CAPSULE PO (20:05)
--- NOTE | 2021-05-22 20:06 | PC.NURSE ---
patient medicated per order
--- NOTE | 2021-05-22 20:15 | PC.NURSE ---
report called to overflow
[2021-05-22] MEDS: 0.9 % Sodium Chloride Flush 3 ML SYRINGE IVFLUSH (21:00)
[2021-05-23] VITALS (10 sets, daily range): BP systolic 127–166; BP diastolic 76–93; PULSE 83–117; RESP 14–33; TEMP 36.9–37.4; O2SAT 93–98
[2021-05-23] MEDS: Heparin Sodium,Porcine 5,000 UNIT/ML VIAL 5000 UNIT SUBCUT ×3 (02:25→18:40)
[2021-05-23 03:22] LABS: Estimated Average Glucose 123 mg/dL; Hemoglobin A1C 152.1669 umol/L; Hemoglobin A1c % 5.9 %
[2021-05-23] MEDS: Lactated Ringers 1,000 ML 80 ML IVCONT ×2 (06:10→22:32)
[2021-05-23 07:20] LABS: MANUAL DIFF FLAG NO
[2021-05-23 07:28] LABS: Basophils Percent Auto 0.1 % (0-2); Hematocrit 41.9 % (42.0-52.0); Hemoglobin 14.3 g/dl (14.0-18.0); Imm Gran Abs Auto 0.06 X10*3/uL (0.00-0.03); Imm Gran Pct Auto 0.4 % (0.0-0.4); Lymphocytes Absolute Auto 1.3 X10*3/uL (1.2-4.9); Lymphocytes Percent Auto 9.6 % (20-40); Mean Corpuscular HGB Conc 34.1 g/dl (31.0-36.0); Mean Corpuscular Volume 82.2 fL (80.0-98.0); Mean Platelet Volume 11.2 fL (9.4-12.4); Monocytes Absolute Auto 1.4 X10*3/uL (0.1-1.2); Monocytes Percent Auto 10.3 % (2-11); Neutrophils Percent Auto 79.6 % (45-73); Platelet Count 180 X10*3/uL (160-400); Red Cell Distribution Width 12.5 % (11.0-16.0); White Blood Count 13.9 X10*3/uL (4.8-10.8)
[2021-05-23 07:49] LABS: Anion Gap 17 (12-20); Blood Urea Nitrogen 16 mg/dL (9-16); Calcium 8.9 mg/dL (8.4-10.2); Carbon Dioxide 21 mmol/L (22-29); Chloride 104 mmol/L (96-108); Cholesterol 182 mg/dL; Estimated Glomerular Filt Rate > 60; Glucose Random 139 mg/dL (60-115); HDL Cholesterol 34 mg/dL; LDL Cholesterol Calculated 129 mg/dl; Potassium 3.5 mmol/L (3.3-5.1); Sodium 138 mmol/L (135-145); Triglycerides 98 mg/dL
[2021-05-23 08:45] LABS: Magnesium 1.9 mg/dL (1.6-2.6)
[2021-05-23] MEDS: Magnesium Oxide 400 MG TABLET PO ×2 (09:14→18:39)
[2021-05-23] MEDS: 0.9 % Sodium Chloride Flush 3 ML SYRINGE IVFLUSH ×2 (09:15→18:39)
[2021-05-23] MEDS: lisinopriL 20 MG, hydroCHLOROthiazide 25 MG PO (09:15)
[2021-05-23] MEDS: Oseltamivir Phosphate 75 MG CAPSULE PO ×2 (09:16→22:33)
[2021-05-23] MEDS: amLODIPine Besylate 5 MG TABLET PO (09:16)
[2021-05-23] MEDS: Aspirin Enteric Coated 81 MG TABLET.DR PO (09:16)
[2021-05-23] MEDS: Metoprolol Succinate ER 100 MG TAB.ER.24H PO (09:16)
--- NOTE | 2021-05-23 09:21 | PC.NURSE ---
pt is a/o x 3 no sob/holli noted skin pink warm dry speaks in full sentences.lungs - crackles noted all lobes and pt is very congested.
--- NOTE | 2021-05-23 13:38 | HO.PM.IMPN ---
Subjective Subjective Date of Service: 05/23/21 Interval History: sirs ,flu A, cva Review of Systems Patient still tachycardia and tachypneic, generalized weak Has cough and sore throat,cough with Physical Exam Vital Signs: Vital Signs: Last Vital Signs Temp 98.5 F 05/23/21 13:03 Pulse 100 05/23/21 13:03 Resp 14 05/23/21 13:03 BP 127/87 05/23/21 13:03 Pulse Ox 95 05/23/21 13:03 BMI result Body Mass Index 26.9 Appearance: Alert.? Oriented X3.? not in distress.feels weak generally Eyes: Pupils equal, round and reactive to light.? Sclera nonicteric.? ENT: Pharynx normal.? Moist mucous membranes. cvs: rrr, [id number] i res: air entry fair , slightly diminshed at bases, abd: no rebound or guarding ,nt, bs present. ext pulses present , no cyanosis . neuro: axo3, moves all extermities ,left arm and shoulder area rom limited -has pain Objective Data Active Medications Amlodipine Besylate (Amlodipine Besylate 5 Mg Tablet) 5 mg PO DAILY [facility]; Protocol Last Admin: 05/23/21 09:16 Dose: 5 mg Documented by: EL Aspirin (Aspirin Enteric Coated 81 Mg Tablet.) 81 mg PO DAILY [facility] Last Admin: 05/23/21 09:16 Dose: 81 mg Documented by: EL Benzocaine (Throat Lozenge, Medicated Lozenge) 1 lozenge MUCOUS MEM Q2H PRN PRN Reason: Sore Throat Last Admin: 05/22/21 21:01 Dose: 1 lozenge Documented by: MENDEZ Lisinopril 20 mg/ (Hydrochlorothiazide 25 mg) 0 mg PO DAILY [facility] Last Admin: 05/23/21 09:15 Dose: 1 tablet Documented by: EL Heparin Sodium (Porcine) (Heparin Sodium,Porcine 5,000 Unit/Ml Vial) 5,000 unit SUBCUT Q8H [facility] Last Admin: 05/23/21 09:14 Dose: 5,000 unit Documented by: PARTHAOC Lactated Ringer's (Lr) 1,000 mls @ 80 mls/hr IVCONT .[id number] [facility] Last Admin: 05/23/21 06:10 Dose: 80 mls/hr Documented by: MCTA Magnesium Oxide (Magnesium Oxide 400 Mg Tablet) 400 mg PO BIDPC [facility] Last Admin: 05/23/21 09:14 Dose: 400 mg Documented by: EL Metoprolol Succinate (Metoprolol Succinate Er 100 Mg Tab.Er.24h) 100 mg PO DAILY [facility]; Protocol Last Admin: 05/23/21 09:16 Dose: 100 mg Documented by: EL Oseltamivir Phosphate (Oseltamivir Phosphate 75 Mg Capsule) 75 mg PO BID [facility] Last Admin: 05/23/21 09:16 Dose: 75 mg Documented by: EL Pharmacy Consult (Consult Rx Perform Med Rec) 1 each MISCELLANE ONCE PRN PRN Reason: Consult order Sodium Chloride (0.9 % Sodium Chloride Flush 3 Ml Syringe) 3 ml IVFLUSH QSHIFT [facility] Last Admin: 05/23/21 09:15 Dose: 3 ml Documented by: EL Tamsulosin HCl (Tamsulosin Hcl 0.4 Mg Capsule) 0.4 mg PO BEDTIME [facility] Last Admin: 05/22/21 20:05 Dose: 0.4 mg Documented by: KATHERINE Labs CBC & Chem 7: 05/23/21 07:03 05/23/21 07:03 Labs: Laboratory Results - last 24 hr 05/22/21 05/22/21 05/22/21 13:16 13:16 13:16 MCV MCH MCHC RDW Plt Count MPV Immature Gran % (Auto) Neut % (Auto) Lymph % (Auto) [place] % (Auto) Eos % (Auto) Baso % (Auto) Lymph # (Auto) [place] # (Auto) Eos # (Auto) Baso # (Auto) Abs Immat Gran (auto) Absolute Neuts (auto) Absolute Nucleated RBC Nucleated RBC % (auto) Anion Gap 18 Estim Creat Clear Calc 71.8 Estimated GFR > 60 POC Glucose Random Glucose 139 H Estimat Average Glucose Hemoglobin A1c % Calcium 9.4 Magnesium 1.5 L Total Bilirubin 0.7 Direct Bilirubin 0.2 AST 17 ALT 19 Alkaline Phosphatase 51 Total Creatine Kinase 373 H Total Protein 7.5 Albumin 4.4 Triglycerides Cholesterol LDL Cholesterol, Calc HDL Cholesterol Urine Color Urine Appearance Urine pH Ur Specific Silt Urine Protein Urine Glucose (UA) Urine Ketones Urine Blood Urine Nitrite Ur Leukocyte Esterase Urine RBC Urine WBC Ur Squamous Epith Cells Urine Bacteria Urine Mucus Urine Opiates Screen Urine Fentanyl Screen Ur Barbiturates Screen Ur Phencyclidine Scrn Ur Amphetamines Screen U Benzodiazepines Scrn Urine Cocaine Screen U Marijuana (THC) Screen COVID-19 (CHUCK) Negative COVID-19 Clin Com See Note Influenza Type A (MANUEL) Positive A Influenza Type B (MANUEL) Negative Influenza A & B Note See Note S. pyogenes GrpA MANUEL 05/22/21 05/22/21 05/22/21 13:16 15:57 15:57 MCV MCH MCHC RDW Plt Count MPV Immature Gran % (Auto) Neut % (Auto) Lymph % (Auto) [place] % (Auto) Eos % (Auto) Baso % (Auto) Lymph # (Auto) [place] # (Auto) Eos # (Auto) Baso # (Auto) Abs Immat Gran (auto) Absolute Neuts (auto) Absolute Nucleated RBC Nucleated RBC % (auto) Anion Gap Estim Creat Clear Calc Estimated GFR POC Glucose Random Glucose Estimat Average Glucose 123 Hemoglobin A1c % 5.9 Calcium Magnesium Total Bilirubin Direct Bilirubin AST ALT Alkaline Phosphatase Total Creatine Kinase Total Protein Albumin Triglycerides Cholesterol LDL Cholesterol, Calc HDL Cholesterol Urine Color YELLOW Urine Appearance CLEAR Urine pH 5.5 Ur Specific Silt >= 1.030 H Urine Protein 2+ H Urine Glucose (UA) NEG Urine Ketones 15 Urine Blood 2+ H Urine Nitrite NEG Ur Leukocyte Esterase NEG Urine RBC 0-2 Urine WBC 0 Ur Squamous Epith Cells TRACE Urine Bacteria NONE Urine Mucus TRACE Urine Opiates Screen Not Detected Urine Fentanyl Screen Not Detected Ur Barbiturates Screen Not Detected Ur Phencyclidine Scrn Not Detected Ur Amphetamines Screen Not Detected U Benzodiazepines Scrn Not Detected Urine Cocaine Screen Not Detected U Marijuana (THC) Screen Not Detected COVID-19 (CHUCK) COVID-19 Clin Com Influenza Type A (MANUEL) Influenza Type B (MANUEL) Influenza A & B Note S. pyogenes GrpA MANUEL 05/22/21 05/22/21 05/23/21 16:18 19:18 07:03 MCV 82.2 MCH 28.0 MCHC 34.1 RDW 12.5 Plt Count 180 MPV 11.2 Immature Gran % (Auto) 0.4 Neut % (Auto) 79.6 H Lymph % (Auto) 9.6 L [place] % (Auto) 10.3 Eos % (Auto) 0.0 Baso % (Auto) 0.1 Lymph # (Auto) 1.3 [place] # (Auto) 1.4 H Eos # (Auto) 0.0 Baso # (Auto) 0.0 Abs Immat Gran (auto) 0.06 H Absolute Neuts (auto) 11.0 H Absolute Nucleated RBC 0.000 Nucleated RBC % (auto) 0.0 Anion Gap Estim Creat Clear Calc Estimated GFR POC Glucose 150 H Random Glucose Estimat Average Glucose Hemoglobin A1c % Calcium Magnesium Total Bilirubin Direct Bilirubin AST ALT Alkaline Phosphatase Total Creatine Kinase Total Protein Albumin Triglycerides Cholesterol LDL Cholesterol, Calc HDL Cholesterol Urine Color Urine Appearance Urine pH Ur Specific Silt Urine Protein Urine Glucose (UA) Urine Ketones Urine Blood Urine Nitrite Ur Leukocyte Esterase Urine RBC Urine WBC Ur Squamous Epith Cells Urine Bacteria Urine Mucus Urine Opiates Screen Urine Fentanyl Screen Ur Barbiturates Screen Ur Phencyclidine Scrn Ur Amphetamines Screen U Benzodiazepines Scrn Urine Cocaine Screen U Marijuana (THC) Screen COVID-19 (CHUCK) COVID-19 Clin Com Influenza Type A (MANUEL) Influenza Type B (MANUEL) Influenza A & B Note S. pyogenes GrpA MANUEL Negative 05/23/21 07:03 MCV MCH MCHC RDW Plt Count MPV Immature Gran % (Auto) Neut % (Auto) Lymph % (Auto) [place] % (Auto) Eos % (Auto) Baso % (Auto) Lymph # (Auto) [place] # (Auto) Eos # (Auto) Baso # (Auto) Abs Immat Gran (auto) Absolute Neuts (auto) Absolute Nucleated RBC Nucleated RBC % (auto) Anion Gap 17 Estim Creat Clear Calc 80.0 Estimated GFR > 60 POC Glucose Random Glucose 139 H Estimat Average Glucose Hemoglobin A1c % Calcium 8.9 Magnesium 1.9 Total Bilirubin Direct Bilirubin AST ALT Alkaline Phosphatase Total Creatine Kinase Total Protein Albumin Triglycerides 98 Cholesterol 182 LDL Cholesterol, Calc 129 HDL Cholesterol 34 Urine Color Urine Appearance Urine pH Ur Specific Silt Urine Protein Urine Glucose (UA) Urine Ketones Urine Blood Urine Nitrite Ur Leukocyte Esterase Urine RBC Urine WBC Ur Squamous Epith Cells Urine Bacteria Urine Mucus Urine Opiates Screen Urine Fentanyl Screen Ur Barbiturates Screen Ur Phencyclidine Scrn Ur Amphetamines Screen U Benzodiazepines Scrn Urine Cocaine Screen U Marijuana (THC) Screen COVID-19 (CHUCK) COVID-19 Clin Com Influenza Type A (MANUEL) Influenza Type B (MANUEL) Influenza A & B Note S. pyogenes GrpA MANUEL Assessment and Plan (1) Influenza: Status: Acute (2) Encephalopathy: Status: Acute Plan 1. Possible cva? mri:Artifact versus a punctate subacute lacunar infarct within the left basal ganglia on image? ct findings seems undetemined age continue asa , lipid panel noted-added statin cva workup -carotid noted , echo and neurology evalpending 2.htn : cotninue home meds 3. Viral sepsis due to influenza A: still tachycardia, tachypnea ,wbc increasing Continue Tamiflu Ua and drug sceern also added . Blood culture pending added cxr ,procalcitonin levels ID eval 4. Hypomagnesemia:? Repleted, improved.. 5. Pre renal azotemia:? Continue gentle hydration.? 6. Mild hyperglycemia: hemoglobin A1c: 5.9. 7. Prostate enlargement: contnue flomax. Pt recomended acute rehab,OT and swallow eval pending DVT prophylaxis:? Subcu heparin. need for inaptient : viral sepsis , cva Quality Stroke Does the patient have a stroke diagnosis?: No VTE Prior VTE?: No VTE Risk Level:: Medical - moderate - high VTE Device Contraindication: N/A - Device Ordered VTE Drug Contraindication: N/A - Med Ordered
--- NOTE | 2021-05-23 14:14 | MHC.CM.PN ---
PT REPORTS HE LIVES ALONE AND IS INDEPENDENT WITH CARE AT [facility] PT HAS NO DME AND NO HOME SERVICES PT REPORTS HE SEES A PCP AT [facility] [place] PT REPORTS HE RECEIVED THE J&J VACCINE FOR COVID-19 AND RECEIVED A BOOSTER IMM DELIVERED, COPY SENT TO [facility] CURRENT DC PLAN IS HOME WITH NO SERVICES VS HOME WITH [facility] PT WILL ARRANGE TRANSPORT
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
[2021-05-23] MEDS: Albuterol/Iprat 2.5/0.5MG 3 ML AMPUL.NEB INHALE (15:21)
--- NOTE | 2021-05-23 15:35 | PC.NURSE ---
pt seen by ddr. bass and is aware of plan of care.
[2021-05-23 16:18] LABS: Procalcitonin 0.29 ng/mL
--- NOTE | 2021-05-23 17:18 | MHC.SL.SWA ---
Speech Pathologist Impression: Pharyngeal dysphagia Dysphasia Diet Status: Downgrade Liquid Consistency and Strategies for Safe Swallow: Liquid Intake Recommendation: Honey Thick Liquid Intake Strategies: Small Sips Liquids by Teaspoon Only Solid Food Consistency: Dietary Recommendations: Regular Additional Modifications to Solid Foods: Overt s/s of aspiration when drinking thin liquid and nectar thick liquid. Oral Medication Intake: Whole with Puree Please contact the pharmacy regarding appropriate crushable or liquid drug formulations that are available whenever modified delivery is recommended. Compensatory Strategies and Precautions to be Taken for Safe Swallow: Sitting Upright (90 deg) No Straw Liquids from Spoon Small Bites and Sips Rate of Ingestion Change Supervision While Eating and Drinking for Safe Swallow: Total Supervision (1:1) Swallowing Recommended Treatments: Compens. Strategy Educat. Recommendation for Speech: Inpatient Speech Therapy Comment: FAMILY MEDICINE PHYSICIAN ASSISTANT will continue to follow. Frequency/Duration: M-F Continuous Drier Operator Clinican/Clinical Fellow: No Supervisory Statement: I have reviewed and agree with the student/clinical fellow's documentation: N/A Speech Language Pathologist: Page Monroy M.A., CCC-FAMILY MEDICINE PHYSICIAN ASSISTANT
--- NOTE | 2021-05-23 17:56 | PC.NURSE ---
PATIENT WAS INCONTINENT OF LARGE AMOUNT OF URINE ,CARE WAS GIVEN ,PATIENT WAS ASSISTED OUT OF BED TO SIT IN RECLINER WITH 1 ASST .
--- NOTE | 2021-05-23 18:01 | PC.NURSE ---
pt is sitting up in a recliner chair with a female visitor at bedside.
--- NOTE | 2021-05-23 18:36 | PC.NURSE ---
pt is sitting up in recliner eating his supper
[2021-05-23] MEDS: Tamsulosin HCL 0.4 MG CAPSULE PO (22:33)
[2021-05-23] MEDS: Atorvastatin Calcium 40 MG TABLET PO (22:33)
[2021-05-24] VITALS (12 sets, daily range): BP systolic 136–172; BP diastolic 79–90; PULSE 76–93; RESP 15–22; TEMP 35.9–36.6; O2SAT 90–97
[2021-05-24] MEDS: Heparin Sodium,Porcine 5,000 UNIT/ML VIAL 5000 UNIT SUBCUT ×4 (00:26→23:32)
[2021-05-24] MEDS: 0.9 % Sodium Chloride Flush 3 ML SYRINGE IVFLUSH ×4 (00:28→21:16)
[2021-05-24] MEDS: Albuterol/Iprat 2.5/0.5MG 3 ML AMPUL.NEB INHALE ×4 (07:22→19:42)
[2021-05-24 07:30] LABS: Hematocrit 37.5 % (42.0-52.0); Mean Corpuscular HGB Conc 34.7 g/dl (31.0-36.0); Mean Corpuscular Hemoglobin 28.4 pg (27.0-33.0); Mean Corpuscular Volume 81.9 fL (80.0-98.0); Mean Platelet Volume 11.7 fL (9.4-12.4); Platelet Count 164 X10*3/uL (160-400); Red Blood Count 4.58 X10*6/uL (4.60-5.80); Red Cell Distribution Width 12.8 % (11.0-16.0); White Blood Count 7.6 X10*3/uL (4.8-10.8)
[2021-05-24 07:45] LABS: Anion Gap 13 (12-20); Blood Urea Nitrogen 17 mg/dL (9-16); Calcium 8.8 mg/dL (8.4-10.2); Carbon Dioxide 25 mmol/L (22-29); Chloride 103 mmol/L (96-108); Creatinine Clr Calc Pharmacy 98.2; Estimated Glomerular Filt Rate > 60; Glucose Random 112 mg/dL (60-115); Potassium 3.6 mmol/L (3.3-5.1); Sodium 137 mmol/L (135-145)
--- NOTE | 2021-05-24 08:00 | CA_ITS ---
Transthoracic Echocardiogram Patient (Last, First, Middle): Jason Da Silva, Gender: Male Date of : 1950 Age: 70 Procedure Date: 05/24/2021 Procedure Type: Transthoracic Echocardiogram Location: [facility] Height: 182.88 cm Weight: 89.81 kg BSA: 2.12 m2 Heart Rate: bpm BP: 140 / 78 mmHg Golf Ball Marker: Referring MD: Micheal Lombardi MD Symptoms: cva Study Quality: Fair ECG Rhythm: Sinus Conclusions: - The left ventricular systolic function is normal. The calculated ejection fraction is 55% by biplane method. - There is moderately increased left ventricular wall thickness. - No obvious valvular pathology seen on this study. - There is mild dilatation of the ascending aorta measuring 3.70 cm. Findings Left Ventricle Normal left ventricular cavity size. There is moderately increased left ventricular wall thickness. The left ventricular systolic function is normal. The calculated ejection fraction is 55% by biplane method. There is no evidence of regional wall motion abnormalities. E/E prime ratio is >15, consistent with elevated filling pressures. Evidence suggests grade I (mild) diastolic dysfunction. Right Ventricle Normal right ventricular cavity size and systolic function. Atria Both atria are normal in size. Aortic Valve The aortic valve was not well visualized. There is no aortic valve stenosis. Trace to mild aortic regurgitation. Mitral Valve The mitral valve appears normal. There is mild anterior mitral leaflet thickening. There is trace mitral valve regurgitation. There is no mitral valve stenosis. Pulmonic Valve The pulmonic valve was not well visualized. Tricuspid Valve Normal tricuspid valve structure. There is trace tricuspid valve regurgitation. The pulmonary artery systolic pressure is normal. Great Vessels There is mild dilatation of the ascending aorta measuring 3.70 cm. Venous The inferior vena cava is normal in size and collapses greater than 50% with inspiration. Pericardium/Pleural There is a trivial pericardial effusion. Prior Study Comparison No prior study available for comparison. Recommendations, Care & Conclusions No obvious valvular pathology seen on this study. Measurements 2D Linear Measurements IVSd: 1.30 0.6-0.9/0.6-1.0 cm LVIDd: 3.52 3.9-5.3/4.2-5.9 cm LVIDd Index: 1.66 2.4-3.2/2.2-3.1 cm/m2 LVIDs: 2.03 2.0-3.6 cm LVPWd: 1.30 0.7-1.1 cm LA Diam: 3.60 2.7-3.8/3.0-4.0 cm LAIDs Index: 1.70 1.5-2.3 cm/m2 LV Mass: 193.03 67-162/88-224 g LV Mass Index: 91.05 43-95/49-115 g/m2 LVOT Diam: 2.10 3.0+(-)1.3 cm 2D Systolic Function EF 4C: 53.60 >55% EF 2C: 57.20 >55% EF BiP: 55.20 >55% Mitral Valve MV Pk E: 0.72 MV PK A: 0.82 MV Decel Time: 226.00 E/A: 0.90 E'Lateral: 4.68 E'Medial: 4.90 E/E' Med: 14.80 E/E' Lat: 15.50 PHT: 66.00 MVA PHT: 3.33 Decel [place]: 3.21 Aortic Valve AoV Pk Grady: 1.31 AoV Mn Grady: 0.90 AoV VTI: 0.24 AoV Pk Grad: 7.00 Aov Mn Grad: 4.00 SARA Cont.VTI: 3.03 LVOT LVOT Pk Grady: 1.21 LVOT Mn Grady: 0.77 LVOT VTI: 0.21 LVOT Pk Grad: 6.00 LVOT Mn Grad: 3.00 LVOT Diam: 2.10 LVOT Area: 3.46 Diastolic Function MV Pk E: 0.72 MV Pk A: 0.82 E/A: 0.90 E'Medial: 4.90 E/E' Med: 14.80 E' Laterial: 4.68 E/E' Lat: 15.50 Right Ventricle TAPSE (mm): 28.60 TVS' Grady: 17.20 Tricuspid Valve TR Pk Grady: 1.92 TR Pk Grad: 15.00 Great Vessels Aorta Sinus of Valsalva: 3.52 2.0-3.[address] [place]: 3.21 1.7-3.4 cm Ao Asc: 3.70 2.1-3.4 cm Pulmonary Valve PV Pk Grady: 1.23 Peak PV Grad: 6.00 Updated in Other Vendor System with Status of Final Barrington Garcia MD electronically signed on 05/24/2021 4:47:42 PM with status of Final
[2021-05-24] MEDS: Magnesium Oxide 400 MG TABLET PO ×2 (08:54→16:58)
[2021-05-24] MEDS: Aspirin Enteric Coated 81 MG TABLET.DR PO (08:55)
[2021-05-24] MEDS: amLODIPine Besylate 5 MG TABLET PO (08:55)
[2021-05-24] MEDS: lisinopriL 20 MG, hydroCHLOROthiazide 25 MG PO (08:55)
[2021-05-24] MEDS: Oseltamivir Phosphate 75 MG CAPSULE PO ×2 (08:56→21:15)
[2021-05-24] MEDS: Metoprolol Succinate ER 100 MG TAB.ER.24H PO (08:58)
--- NOTE | 2021-05-24 09:07 | P.PNIM_ITS ---
Subjective Subjective Date of Service: 05/24/21 Interval History: f/u viral influenza sepsis, and weakness overall with minimal improveent, still with weakness Review of Systems Patient still tachycardia and tachypneic, generalized weak Has cough and sore throat,cough with Physical Exam 2 Vital Signs: Vital Signs: Last Vital Signs Temp 97.8 F 05/24/21 07:19 Pulse 91 05/24/21 08:25 Resp 18 05/24/21 07:26 BP 140/88 H 05/24/21 07:19 Pulse Ox 92 05/24/21 07:19 BMI result Body Mass Index 26.9 Const: Other: General: AO X 3, no acute distress Resp: CTA bilateral CVS: S1,S2,RRR GI: +BS, NT, no distention Skin: No rash Neuro: generalized weakness with no focal deficit Psych: appropriate affect Objective Data Active Medications Albuterol/Ipratropium (Albuterol/Iprat 2.5/0.5mg 3 Ml Ampul.Neb) 3 ml INHALE RQ4H WHILE AWAKE [facility] Last Admin: 05/24/21 07:22 Dose: 3 ml Documented by: MARK Amlodipine Besylate (Amlodipine Besylate 5 Mg Tablet) 5 mg PO DAILY [facility]; Protocol Last Admin: 05/24/21 08:55 Dose: 5 mg Documented by: MARILOU Aspirin (Aspirin Enteric Coated 81 Mg Tablet.Dr) 81 mg PO DAILY [facility] Last Admin: 05/24/21 08:55 Dose: 81 mg Documented by: MARILOU Atorvastatin Calcium (Atorvastatin Calcium 40 Mg Tablet) 40 mg PO BEDTIME [facility] Last Admin: 05/23/21 22:33 Dose: 40 mg Documented by: JUAN DIEGO Benzocaine (Throat Lozenge, Medicated Lozenge) 1 lozenge MUCOUS MEM Q2H PRN PRN Reason: Sore Throat Last Admin: 05/22/21 21:01 Dose: 1 lozenge Documented by: MENDEZ Lisinopril 20 mg/ (Hydrochlorothiazide 25 mg) 0 mg PO DAILY [facility] Last Admin: 05/24/21 08:55 Dose: 2 tablet Documented by: MARILOU Guaifenesin (Guaifenesin 100 Mg/5 Ml Liquid) 5 ml PO Q4H PRN PRN Reason: Cough Heparin Sodium (Porcine) (Heparin Sodium,Porcine 5,000 Unit/Ml Vial) 5,000 unit SUBCUT Q8H [facility] Last Admin: 05/24/21 08:56 Dose: 5,000 unit Documented by: MARILOU Lactated Ringer's (Lr) 1,000 mls @ 80 mls/hr IVCONT .[id number] [facility] Last Admin: 05/24/21 06:17 Dose: Not Given Documented by: SHAHEEN Non-Admin Reason: IV Running Magnesium Oxide (Magnesium Oxide 400 Mg Tablet) 400 mg PO BIDPC [facility] Last Admin: 05/24/21 08:54 Dose: 400 mg Documented by: MARILOU Metoprolol Succinate (Metoprolol Succinate Er 100 Mg Tab.Er.24h) 100 mg PO DAILY [facility]; Protocol Last Admin: 05/24/21 08:58 Dose: 100 mg Documented by: MARILOU Oseltamivir Phosphate (Oseltamivir Phosphate 75 Mg Capsule) 75 mg PO BID [facility] Last Admin: 05/24/21 08:56 Dose: 75 mg Documented by: MARILOU Pharmacy Consult (Consult Rx Perform Med Rec) 1 each MISCELLANE ONCE PRN PRN Reason: Consult order Sodium Chloride (0.9 % Sodium Chloride Flush 3 Ml Syringe) 3 ml IVFLUSH QSHIFT [facility] Last Admin: 05/24/21 08:56 Dose: 3 ml Documented by: MARILOU Tamsulosin HCl (Tamsulosin Hcl 0.4 Mg Capsule) 0.4 mg PO BEDTIME [facility] Last Admin: 05/23/21 22:33 Dose: 0.4 mg Documented by: JACKIEASY Labs CBC & Chem 7: 05/24/21 06:43 05/24/21 06:43 Labs: Laboratory Results - last 24 hr 05/23/21 05/24/21 05/24/21 07:03 06:43 06:43 MCV 81.9 MCH 28.4 MCHC 34.7 RDW 12.8 Plt Count 164 MPV 11.7 Absolute Nucleated RBC 0.000 Nucleated RBC % (auto) 0.0 Anion Gap 13 Estim Creat Clear Calc 98.2 Estimated GFR > 60 Random Glucose 112 Calcium 8.8 Procalcitonin 0.29 Microbiology Microbiology Results: Microbiology 05/23/21 14:25 Throat Culture - Preliminary Throat No Group A Beta-hemolytic Streptococci isolated to date. 05/22/21 13:16 Blood Culture - Preliminary Blood - Venous No growth after 24 hours. 05/22/21 13:16 Blood Culture - Preliminary Blood - Venous No growth after 24 hours. Assessment and Plan (1) Influenza: Status: Acute (2) Encephalopathy: Status: Acute Plan 1. Weakness, no evidence of CVA, ? dementia related issues ? seizure. Neuro recommend BP management and PT recommends STR 2.HTN--BP ok 3. Viral sepsis due to influenza A. Tamiflu, cultures negative, echo no veg etation.s 4. Hypomagnesemia:? Repleted, improved.. 5. Pre renal azotemia:? Continue gentle hydration.? 6. Mild hyperglycemia: hemoglobin A1c: 5.9. 7. Prostate enlargement: contnue flomax. Pt recomended acute rehab,OT and swallow eval pending Need for inpatiet: Sepsis complicated physical weakness and debility and will need rehab bed, DC today if rehab bed available Quality Stroke Does the patient have a stroke diagnosis?: No VTE Prior VTE?: No VTE Risk Level:: Medical - moderate - high VTE Device Contraindication: N/A - Device Ordered VTE Drug Contraindication: N/A - Med Ordered
--- NOTE | 2021-05-24 11:29 | P.CDIC_ITS ---
CDI Concurrent Query Documentation Clarification: PHYSICIAN'S DOCUMENTATION REQUEST Date of Query: 05/24/21 1130 Patient Name: Jason Da Silva JR Admit Date: 05/22/21 Dear Doctor, A review of the medical record indicates additional documentation may be needed. Please review below and update the documentation accordingly. Clinical Indicators: Risk Factors/Clinical Indicators/Treatments PN 05/23 - Assessment/plan: encephalopathy PN 05/24 - Assessment/plan: encephalopathy Generalized weakness ? dementia related issues ? seizure. Based on the above, could you clarify in the Progress Notes which, if any of the following, is the most likely specifics of the encephalopathy/dementia noted: * Encephalopathy - metabolic, toxic, septic, hypertensive, etc. * Dementia - indicate type of dementia, such as Alzheimer's, senile, vascular, Lewy body, etc. * Baseline dementia - indicate type, such as Alzheimer's, senile, vascular, Lewy body, etc. * Other etiology (please specify) * Unable to determine Use of terms such as suspected, likely, concern for, or probable (associated with a specific diagnosis that is being evaluated, monitored, or treated as if it exists) are acceptable and can be coded in the inpatient setting, when documented at the time of discharge. Thank you, Seda Sanchez [facility], CDIS Extension: [id number] Please use your independent medical judgment in providing your response. THIS QUERY IS PART OF THE PERMANENT MEDICAL RECORD Provider Response: Other Other Diagnosis: Unable to determine,
[2021-05-24] MEDS: Lactated Ringers 1,000 ML 80 ML IVCONT (11:50)
--- NOTE | 2021-05-24 16:22 | MHC.CM.PN ---
[employer] denied pt to go to [facility] doing doc to doc to advocate for pts admission
--- NOTE | 2021-05-24 16:54 | MHC.SL.SWA ---
Speech Pathologist Impression: Risk of Aspiration Due to: Dysphasia Diet Status: REGULAR w/ THIN LIQUIDS, PILLS WHOLE w/LIQUID. Liquid Consistency and Strategies for Safe Swallow: Liquid Intake Recommendation: Thin Liquid Intake Strategies: Small Sips No Straws Solid Food Consistency: Dietary Recommendations: Regular Additional Modifications to Solid Foods: Overt s/s of aspiration when drinking thin liquid and nectar thick liquid. Oral Medication Intake: Whole with Liquid Please contact the pharmacy regarding appropriate crushable or liquid drug formulations that are available whenever modified delivery is recommended. Compensatory Strategies and Precautions to be Taken for Safe Swallow: Sitting Upright (90 deg) Liquids from Cup Small Bites and Sips Alternate Liquids/Solids Supervision While Eating and Drinking for Safe Swallow: Intermittent Supervision Foods to Avoid: Swallowing Recommended Treatments: Compens. Strategy Educat. Recommendation for Speech: Inpatient Speech Therapy: Pt tolerated thin liquids by cup sip today (05/24/21) w/ no clinical signs of aspiration on multiple trials. UPGRADE to thin liquids, PACKAGER MACHINE made change in diet orders, notified MD of UPGRADE by secure text. Comment: PACKAGER MACHINE will continue to follow. Frequency/Duration: M-F Date Range for Service Req: Timeline to reassess: Assistant Golf Professional Clinican/Clinical Fellow: No Supervisory Statement: I have reviewed and agree with the student/clinical fellow's documentation: N/A Speech Language Pathologist: Mai Verduzco M.A., [facility]-PACK[employer]ER [employer]ACH[facility]
[2021-05-24] MEDS: Tamsulosin HCL 0.4 MG CAPSULE PO (21:15)
[2021-05-24] MEDS: Atorvastatin Calcium 40 MG TABLET PO (21:15)
[2021-05-25] VITALS (8 sets, daily range): BP systolic 134–163; BP diastolic 69–96; PULSE 76–87; RESP 15–20; TEMP 36.1–37.3; O2SAT 95–97
[2021-05-25] MEDS: Lactated Ringers 1,000 ML 80 ML IVCONT (04:16)
[2021-05-25] MEDS: Metoprolol Succinate ER 100 MG TAB.ER.24H PO (08:31)
[2021-05-25] MEDS: Magnesium Oxide 400 MG TABLET PO ×2 (08:31→17:16)
[2021-05-25] MEDS: amLODIPine Besylate 5 MG TABLET PO (08:31)
[2021-05-25] MEDS: lisinopriL 20 MG, hydroCHLOROthiazide 25 MG PO (08:31)
[2021-05-25] MEDS: 0.9 % Sodium Chloride Flush 3 ML SYRINGE IVFLUSH ×3 (08:32→21:37)
[2021-05-25] MEDS: Aspirin Enteric Coated 81 MG TABLET.DR PO (08:32)
[2021-05-25] MEDS: Heparin Sodium,Porcine 5,000 UNIT/ML VIAL 5000 UNIT SUBCUT ×2 (08:32→17:15)
[2021-05-25] MEDS: Oseltamivir Phosphate 75 MG CAPSULE PO ×2 (08:32→21:36)
[2021-05-25] MEDS: Albuterol/Iprat 2.5/0.5MG 3 ML AMPUL.NEB INHALE (11:18)
--- NOTE | 2021-05-25 13:47 | MHC.SL.SWA ---
Speech Pathologist Impression: Swallow WFL Risk of Aspiration Due to: N/A Dysphasia Diet Status: REGULAR w/ THIN LIQUIDS, PILLS WHOLE w/LIQUID. Liquid Consistency and Strategies for Safe Swallow: Liquid Intake Recommendation: Thin Liquid Intake Strategies: Small Sips Solid Food Consistency: Dietary Recommendations: Regular Oral Medication Intake: Whole with Liquid Please contact the pharmacy regarding appropriate crushable or liquid drug formulations that are available whenever modified delivery is recommended. Compensatory Strategies and Precautions to be Taken for Safe Swallow: Sitting Upright (90 deg) Small Bites and Sips Alternate Liquids/Solids Rate of Ingestion Change Supervision While Eating and Drinking for Safe Swallow: None Needed Swallowing Recommended Treatments: N/A Recommendation for Speech: D/C ST intervention Auto Glass Technician Clinican/Clinical Fellow: No Supervisory Statement: I have reviewed and agree with the student/clinical fellow's documentation: N/A Speech Language Pathologist: Page Monroy M.A., CCC-[employer]
--- NOTE | 2021-05-25 13:53 | MHC.CM.PN ---
pt denied by [employer] for acute rehab pt agreerable to snf search
--- NOTE | 2021-05-25 15:32 | MHC.CM.PN ---
pt being denied by sn[facility] as he is on flu precautions
[2021-05-25] MEDS: Tamsulosin HCL 0.4 MG CAPSULE PO (21:36)
[2021-05-25] MEDS: Atorvastatin Calcium 40 MG TABLET PO (21:37)
[2021-05-26] MEDS: Heparin Sodium,Porcine 5,000 UNIT/ML VIAL 5000 UNIT SUBCUT ×3 (00:56→16:05)
[2021-05-26 03:40] VITALS: BP 155/88; PULSE 73; RESP 18; TEMP 36.6; O2SAT 95
[2021-05-26 07:45] VITALS: BP 144/87; PULSE 79; RESP 18; TEMP 36.6; O2SAT 95
[2021-05-26 09:23] VITALS: BP 144/87; PULSE 79; O2SAT 95
[2021-05-26] MEDS: amLODIPine Besylate 5 MG TABLET PO (09:24)
[2021-05-26] MEDS: Metoprolol Succinate ER 100 MG TAB.ER.24H PO (09:24)
[2021-05-26] MEDS: Oseltamivir Phosphate 75 MG CAPSULE PO (09:24)
[2021-05-26] MEDS: lisinopriL 20 MG, hydroCHLOROthiazide 25 MG PO (09:24)
[2021-05-26] MEDS: Magnesium Oxide 400 MG TABLET PO ×2 (09:24→16:09)
[2021-05-26] MEDS: Aspirin Enteric Coated 81 MG TABLET.DR PO (09:25)
[2021-05-26] MEDS: 0.9 % Sodium Chloride Flush 3 ML SYRINGE IVFLUSH ×2 (09:25→16:05)
[2021-05-26 11:40] VITALS: BP 131/74; PULSE 80; RESP 18; TEMP 36.6; O2SAT 93
--- NOTE | 2021-05-26 11:53 | P.DS_ITS ---
DS: Providers Provider Date of Service: 05/26/21 Date of admission: 05/22/21 15:37 Primary care physician: Sanjay Herrera MD Consults: 05/22/21 15:31 Consult to Neurology Routine Consulting Provider: [facility] Reason for consultation: cva Has provider been notified: No DS: Diagnosis Discharge Diagnosis (1) Influenza: Status: Acute (2) Encephalopathy: Status: Acute DS: Summary Hospital Course Hospital Course: Chief Complaint: sirs , flu , cva 70-year-old male with past medical history uncontrolled hypertension- for today ED because of question of left-sided arm weakness and slurred speech. As per the patient question miss Chamberlain:? Patient did not went to was escrow clerk in the chart yesterday, was not answering the phone, he also went to check at his home but nobody answered:? Subsequently EMS broke down the door-patient was brought to the hospital:? Currently patient has malaise, mild dry cough and generalized weak. As per the patient patient has left shoulder pain which is chronic and getting treatment in [facility] off with pain management? Is also not clear if he had slurred speech, currently speaking normally. Denies any new complaint of chest pain or shortness of breath or abdominal pain or fever or chills or nausea or vomiting Denies any weakness or numbness. ED workup: WBC 10.5 Hemoglobin is 14.7, hematocrit:? 42.1 Platelets 193 bmp: Sodium 140, potassium 3.4, bicarb 21, BUN 15, creatinine 1.08. Fingersticks running 130s Hospital course: 1. Weakness, due to possible stroke. 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 Overall making progress and initially was recommended for rehab but he is made significant improvment and therefore wants to to go home instead. To condinue medical management with ASA, Lipitor and BP meds. 2.HTN-- Continue Lisinlopril/HCTZ, noravasc, metoprolol 3. Viral sepsis due to influenza A. Tamiflu, cultures negative, echo no vegetation.s 4. Hypomagnesemia:? Repleted, improved.. 5. Pre renal azotemia:? Continue gentle hydration.? 6. Mild hyperglycemia:? hemoglobin A1c: 5.9. 7. Prostate enlargement: contnue flomax. PT recommend STR rehab, insurance delcined acute rehab Need for inpatiet: Sepsis complicated physical weakness and debility and will need rehab bed, DC today if rehab bed available Time Spent with Patient Time attestation: Total time spent providing and/or coordinating discharge services: Discharge coordination time: Greater than 30 minutes Quality: Stroke Does the patient have a stroke diagnosis?: No Physical Exam Vital Signs: Vital Signs: Last Vital Signs Temp 97.2 F 05/25/21 11:31 Pulse 87 05/25/21 11:31 Resp 17 05/25/21 11:31 BP 142/79 H 05/25/21 11:31 Pulse Ox 97 05/25/21 11:31 BMI result Body Mass Index 26.9 DS: Data Data Completed and Pending Labs on day of discharge: Preliminary micro results at discharge 05/22/21 13:16 Blood Culture - Preliminary Blood - Venous No growth after 48 hours. 05/22/21 13:16 Blood Culture - Preliminary Blood - Venous No growth after 48 hours. Discharge Plan Discharge Anticipated Discharge Date/Time: 05/26/21 10:53 Patient Disposition: Home Health Service Discharge Diagnosis: Flu, weakness Referrals: [facility] [Outside] - 1 Week Sanjay Herrera MD [Primary Care Provider] - 1 Week Discharge Medications: New atorvastatin 40 mg Tablet 40 mg PO BEDTIME Qty: 30 0RF Continued amlodipine 5 mg tablet 5 mg PO DAILY 90 Days Qty: 90 0RF metoprolol succinate 100 mg tablet extended release 24 hr 1 tab PO DAILY 0RF lisinopril-hydrochlorothiazide 20-25 mg tablet 1 tab PO DAILY 0RF aspirin 81 mg tablet,delayed release (DR/EC) 81 mg PO DAILY 0RF Discharge Orders: Discharge Order (Routine); Ordered 05/26/21 Ordered By: David Meléndez Diet: advance to usual diet Activity on Discharge: As tolerated Stand Alone Forms: Patient Portal Discharge page Care Plan Goals: full rrecovery from stroke Health Concerns: weakness Plan of Treatment: to rehab, take aspirin, Lipitor and blood pressure medication Assessment: As above Discharge Date/Time: 05/26/21 18:29
[2021-05-26 16:00] VITALS: BP 132/80; PULSE 76; RESP 18
== END 2021-05-26 18:29 | disposition home health service (06) | DRG 871 ==
LOC: HO.ED 14:24 → HO.EDOVER 15:40 → HO.IMC 05-23 19:04
PROVIDERS: Nurse Practitioner Family; Admitting Provider Internal Medicine; Emergency Provider Emergency Medicine; PCP Internal Medicine; Visit Provider Internal Medicine
DX: A41.89 Other specified sepsis (principal); I63.9 Cerebral infarction, unspecified; G81.94 Hemiplegia, unspecified affecting left nondominant side; G93.40 Encephalopathy, unspecified; R73.9 Hyperglycemia, unspecified; J10.1 Influenza due to other identified influenza virus with other respiratory manifestations; N40.0 Benign prostatic hyperplasia without lower urinary tract symptoms; R47.81 Slurred speech; Z66 Do not resuscitate; R29.701 NIHSS score 1; E83.42 Hypomagnesemia; I10 Essential (primary) hypertension; Z79.82 Long term (current) use of aspirin; Z79.899 Other long term (current) drug therapy
CPT/HCPCS: 36415; 70450; 70551; 71045; 71250; 74176; 80048; 80061; 80076; 80307; 81001; 82550; 82947; 83036; 83605; 83735; 84145; 84484; 85025; 85027; 85610; 87040; 87071; 87502; 87635; 87651; 92526; 92610; 93005; 93306; 93880; 94640; 96361; 96365; 96366; 96367; 97110; 97116; 97163; 97166; 97535; 99219; 99285; J0696; J3475